=== PATIENT | male | born 1990 | race African-American/Black ===

== ENCOUNTER 2016-11-02 20:56 | Emergency (ER) | payer BC ==
[~2016-11-02] VITALS: Ht 175.3 cm; Wt 54.4 kg
--- NOTE | ~2016-11-02 | CR63 ---
[facility]. [facility] A Service of [facility] & [facility] RADIOLOGY TEXT RESULTS PATIENT: LUCIANO KARIMI LOCATION: SED : 88 UNIT #: [id number] AGE: [address]: Sunny Cota SEX: M ORDER DR: [id number] [place] [id number] E MR#: [id number] Acc #: [id number] NAME: LUCIANO KARIMI : 1990 SEX: M STUDY DATE/TIME: 11/02/2016 22:23 UNIT: SED ROOM: STUDY DESCRIPTION: CR Chest 2 View Attending Physician: Sunny Cota P.A.-C. Ordering Physician: Sunny Cota P.A.-C. Primary Care Physician: No Primary Care Physician MEDICAL IMAGING REPORT This report is preliminary unless electronic signature is present. EXAM Two-view chest. INDICATIONS Shortness of air today. PROCEDURE Frontal and lateral views of the chest. COMPARISON None. FINDINGS The heart size is normal. No dense consolidation. No pleural fluid or pneumothorax. IMPRESSION No active process. Dictated by... Navjot Kolb M.D. THIS IS AN ELECTRONICALLY VERIFIED REPORT Navjot Kolb M.D. at 11/07/2016 8:57 AM CAITLYN/hayley TD: 11/03/2016 08:46 JOB #: [id number] MEDICAL IMAGING REPORT Page 1 of 1
[2016-11-02] MEDS ORDERED: ALBUTEROL17 GM INH (21:11)
== END 2016-11-02 23:25 | disposition home or self-care (01) ==
LOC: CED 20:56 → SED 20:56
DX: J45.901 Unspecified asthma with (acute) exacerbation (principal); F17.210 Nicotine dependence, cigarettes, uncomplicated
CPT/HCPCS: 71020; 94640; 99285